=== PATIENT | male | born 1960 | race Caucasian/White ===

== ENCOUNTER → 2016-06-15 | Outpatient (CLI) | payer BC ==
[~2016-06-15] MED LIST: ACIPHEX20 MG PO; ALEVE220 MG PO; ASPIRIN EC81 MG PO; CLARITIN10 MG PO; COLACE100 MG PO; CORDARONE,PACE200 MG PO; GLUCOSAMINE HC500 MG PO; LIPITOR40 MG PO; LOPRESSOR25 MG PO; MULTIVITAMINS1 EAC1 PO; NORCO 7.5-3251 EACH PO; PLEXUS PO; PROVIGIL200 MG PO; SINGULAIR10 MG PO
== END | disposition disaster alternative care site (69) ==
LOC: GRAD 09:28
DX: R05 Cough (principal); Z98.890 Other specified postprocedural states